=== PATIENT | female | born 1955 | race Caucasian/White ===

== ENCOUNTER → 2019-02-14 | Outpatient (CLI) | payer BC ==
[2015-10-16 20:00] VITALS: BP 108/73
[~2019-02-14] MED LIST: CEFD300C PO; CELE200C PO; CLON0.5T11 PO; DOXE50CA PO; LEVO75TA5 PO; OMEP20TA8 PO; [UNRECOGNIZED DRUG - OTHER]
[2019-02-15 13:07] LABS: FREE T4 1.33 ng/dL (0.76-1.46); THYROID STIM HORMONE (TSH) 0.049 uIU/mL (0.358-3.740)
== END | disposition home or self-care (01) ==
LOC: LAB 14:31
PROVIDERS: ATTEND Physician Assistant Medical
DX: E03.9 Hypothyroidism, unspecified (principal)
CPT/HCPCS: 84439; 84443; 84481